=== PATIENT | male | born 1945 ===

== ENCOUNTER → 2017-11-11 | Outpatient (CLI) | payer MEDICARE, BC ==
[~2017-11-11] VITALS: Ht 157.5 cm; Wt 68.0 kg
[~2017-11-11] MED LIST: ASPI81TA87 PO; FLUT16H NASAL; LOSA50TA37 PO; MULT-1259 PO
[2017-11-11 10:27] VITALS: BP 110/64
== END | disposition home or self-care (01) ==
LOC: SRCNTR 10:15
PROVIDERS: ATTEND Internal Medicine Cardiovascular Disease
DX: Z09 Encounter for follow-up examination after completed treatment for conditions other than malignant neoplasm (principal); Z79.82 Long term (current) use of aspirin
CPT/HCPCS: G0463

== ENCOUNTER → 2018-05-26 | Outpatient (CLI) | payer MEDICARE, BC ==
[~2018-05-26] MED LIST changes: +ATOR10TA84 PO; -LOSA50TA37 PO; +LOSA50TA64 PO
[2018-05-26 10:14] VITALS: BP 108/79
== END | disposition home or self-care (01) ==
LOC: SRCNTR 10:12
PROVIDERS: ATTEND Internal Medicine Cardiovascular Disease
DX: I11.9 Hypertensive heart disease without heart failure (principal); J43.9 Emphysema, unspecified; E78.5 Hyperlipidemia, unspecified
CPT/HCPCS: G0463